=== PATIENT | female | born 1995 | race American Indian/Alaskan Native ===

== ENCOUNTER 2016-07-17 21:46 | Emergency (ER) | payer SELFPAY ==
[2016-07-17] MEDS ORDERED: TYLENOL ONE (22:27)
[2016-07-17 22:30] VITALS: BP 106/70
[2016-07-17] MEDS ORDERED: TYLENOL PO ONE (22:31)
--- NOTE | 2016-07-18 02:27 | Emergency Department Report ---
ED General Adult HPI - General Chief complaint: Fever Stated complaint: CHEST PAIN/SORE THROAT Time Seen by Provider: 07/18/16 02:23 Source: patient Mode of arrival: Ambulatory Limitations: No Limitations - History of Present Illness Initial comments: 20-year-old -[place] female comes in for complaint of fever and generalized body pain sore throat vomiting and cough. Patient reports that this is been going on for the last 2 days. She reports that she has not tried any medication at all. She comes in today with a fever 101.9 she was given Tylenol in triage. She complains of cough vomiting sneezing nausea vomiting. She has no past medical history only surgical history was tonsils removed. -: days(s) (2) Location: head, face Severity scale (0 -10): 7 - Related Data Previous Rx's Medication Instructions Recorded Last Taken Type Cetirizine HCl [ZyrTEC] 10 mg PO QDAY #30 capsule 07/18/16 Unknown Rx Sulfamethoxazole/Trimethoprim 1 each PO BID #20 tablet 07/18/16 Unknown Rx [Bactrim DS TAB] Triamcinolone Acetonide [Nasacort 10.8 ml NS QDAY #1 spray 07/18/16 Unknown Rx SPRAY] Allergies Allergy/AdvReac Type Severity Reaction Status Date / Time No Known Allergies Allergy Verified 07/17/16 22:29 ED Review of Systems ROS: Stated complaint: CHEST PAIN/SORE THROAT Other details as noted in HPI Constitutional: chills, fever Eyes: denies: eye pain, eye discharge, vision change ENT: throat pain, congestion, other Respiratory: cough Cardiovascular: denies: chest pain, palpitations ED Past Medical Hx - Past Medical History Previous Medical History?: No - Surgical History Past Surgical History?: Yes Additional Surgical History: tonsils - Social History Smoking Status: Never Smoker Substance Use Type: Marijuana - Medications Home Medications: Home Medications Medication Instructions Recorded Confirmed Last Taken Type Cetirizine HCl [ZyrTEC] 10 mg PO QDAY #30 capsule 07/18/16 Unknown Rx Sulfamethoxazole/Trimethoprim 1 each PO BID #20 tablet 07/18/16 Unknown Rx [Bactrim DS TAB] Triamcinolone Acetonide [Nasacort 10.8 ml NS QDAY #1 spray 07/18/16 Unknown Rx SPRAY] ED Physical Exam - General Limitations: No Limitations - Head Head exam: Present: atraumatic, normocephalic - Eye Eye exam: Present: normal appearance - ENT ENT exam: Present: mucous membranes moist, TM's normal bilaterally, other ( maxillary tenderness) - Neck Neck exam: Present: normal inspection, full ROM. Absent: tenderness, lymphadenopathy - Respiratory Respiratory exam: Present: normal lung sounds bilaterally. Absent: respiratory distress - Cardiovascular Cardiovascular Exam: Present: regular rate, normal rhythm. Absent: systolic murmur, diastolic murmur, rubs, gallop - GI/Abdominal GI/Abdominal exam: Present: soft, normal bowel sounds - Neurological Exam Neurological exam: Present: alert, oriented X3 - Skin Skin exam: Present: warm, dry, intact, normal color. Absent: rash ED Course Vital Signs 07/17/16 07/18/16 22:25 02:26 Temperature 101.9 F H 98.7 F Pulse Rate 108 H Respiratory 18 Rate Blood Pressure 106/70 O2 Sat by Pulse 100 Oximetry ED Medical Decision Making - Medical Decision Making Patient has been evaluated by this provider in fast track. Patient had a negative rapid strep.. Discussed with patient we'll treat her for sinusitis placed on antibiotic nasal spray and a histamine reena. Patient verbalized understanding Critical care attestation.: If time is entered above; I have spent that time in minutes in the direct care of this critically ill patient, excluding procedure time. ED Disposition Clinical Impression: Sinusitis Qualifiers: Sinusitis location: maxillary Chronicity: acute Recurrence: non-recurrent Qualified Code(s): J01.00 - Acute maxillary sinusitis, unspecified Disposition: DISCHARGED TO HOME OR SELFCARE Is pt being admited?: No Does the pt Need Aspirin: No Condition: Stable Instructions: Sinusitis (ED) Additional Instructions: Take medication as prescribed follow up with the primary care provider if symptoms persist or does not get better. Prescriptions: Cetirizine HCl [ZyrTEC] 10 mg PO QDAY #30 capsule Sulfamethoxazole/Trimethoprim [Bactrim DS TAB] 1 each PO BID #20 tablet Triamcinolone Acetonide [Nasacort SPRAY] 10.8 ml NS QDAY #1 spray Referrals: [facility] [Outside] - 3-5 Days Forms: Work/School Release Form(ED)
== END 2016-07-18 02:30 | disposition home or self-care (01) ==
LOC: ED 21:46
DX: J01.00 Acute maxillary sinusitis, unspecified (principal); F12.10 Cannabis abuse, uncomplicated
CPT/HCPCS: 87116; 87430; 99282

== ENCOUNTER 2018-08-07 11:05 | Emergency (ER) | payer OTHER ==
[2018-08-07 11:16] VITALS: BP 122/74
--- NOTE | 2018-08-07 11:16 | Event Note ---
ED Screening Note ED Screening Note: SEXUALLY ACTIVE WITH BLADDER PAIN vss afebrile IUD ?lmp PMH none rx none psh none This initial assessment/diagnostic orders/clinical plan/treatment(s) is/are subject to change based on patients health status, clinical progression and re- assessment by fellow clinical providers in the ED. Further treatment and workup at subsequent clinical providers discretion. Patient/guardian urged not to elope from the ED as their condition may be serious if not clinically assessed and managed. Initial orders include:
[2018-08-07 11:42] LABS: Bilirubin,Urine NEG (Negative); Blood,Urine NEG (Negative); Color,Urine Yellow (Yellow); Mucus,Urine FEW /HPF; Protein,Urine <15 mg/dL mg/dL (Negative); Urobilinogen,Urine < 2.0 mg/dL (<2.0)
[2018-08-07 11:53] LABS: HCG Qualitative,Urine Negative (Negative)
--- NOTE | 2018-08-07 12:05 | Emergency Department Report ---
ED Female HPI - General Chief complaint: Abdominal Pain Stated complaint: BLADDER PAIN Time Seen by Provider: 08/07/18 11:15 Source: patient Mode of arrival: Ambulatory Limitations: No Limitations - History of Present Illness Initial comments: Pt is a 22 yo female who presents to the ED with c/o suprapubic abdominal pain that began two days ago. She states she feels a pressure when urinating. She has associated frequency. she denies any dysuria, vaginal discharge, vaginal irritation, vaginal itching, vaginal pain, N/V/D, or fever. she states she is sexually active and occasionally uses protection. she states that she last saw her [facility]URSE [facility]Y RO[facility] in april and states she was diagnosed with BV but did not receive treatment at that time. she states she has an IUD as control. - Related Data Previous Rx's Medication Instructions Recorded Last Taken Type Cetirizine HCl [ZyrTEC] 10 mg PO QDAY #30 capsule 07/18/16 Unknown Rx Sulfamethoxazole/Trimethoprim 1 each PO BID #20 tablet 07/18/16 Unknown Rx [Bactrim DS TAB] Triamcinolone Acetonide [Nasacort 10.8 ml NS QDAY #1 spray 07/18/16 Unknown Rx SPRAY] Fluconazole [Diflucan TAB] 150 mg PO ONCE #1 tablet 08/07/18 Unknown Rx metroNIDAZOLE [Flagyl TAB] 500 mg PO BID 7 Days #14 tab 08/07/18 Unknown Rx Allergies Allergy/AdvReac Type Severity Reaction Status Date / Time No Known Allergies Allergy Verified 08/07/18 11:06 ED Review of Systems ROS: Stated complaint: BLADDER PAIN Other details as noted in HPI Comment: All other systems reviewed and negative ED Past Medical Hx - Past Medical History Previous Medical History?: No - Surgical History Past Surgical History?: No Additional Surgical History: tonsils - Social History Smoking Status: Never Smoker Substance Use Type: None - Medications Home Medications: Home Medications Medication Instructions Recorded Confirmed Last Taken Type Cetirizine HCl [ZyrTEC] 10 mg PO QDAY #30 capsule 07/18/16 Unknown Rx Sulfamethoxazole/Trimethoprim 1 each PO BID #20 tablet 07/18/16 Unknown Rx [Bactrim DS TAB] Triamcinolone Acetonide [Nasacort 10.8 ml NS QDAY #1 spray 07/18/16 Unknown Rx SPRAY] Fluconazole [Diflucan TAB] 150 mg PO ONCE #1 tablet 08/07/18 Unknown Rx metroNIDAZOLE [Flagyl TAB] 500 mg PO BID 7 Days #14 tab 08/07/18 Unknown Rx ED Physical Exam - General Limitations: No Limitations General appearance: alert, in no apparent distress - Head Head exam: Present: atraumatic, normocephalic - Eye Eye exam: Present: normal appearance, PERRL - ENT ENT exam: Present: mucous membranes moist - Respiratory Respiratory exam: Present: normal lung sounds bilaterally. Absent: respiratory distress, wheezes, rales, rhonchi, stridor, chest wall tenderness, accessory muscle use, decreased breath sounds, prolonged expiratory - Cardiovascular Cardiovascular Exam: Present: regular rate, normal rhythm, normal heart sounds. Absent: systolic murmur, diastolic murmur, rubs, gallop - GI/Abdominal GI/Abdominal exam: Present: soft, tenderness (mild suprapubic, no tenderness of the RLQ or LLQ ), normal bowel sounds. Absent: distended, guarding, rebound, rigid - External exam: Present: normal external exam. Absent: erythema, swelling, lesions, lacerations, ecchymosis, bleeding Speculum exam: Present: vaginal discharge (moderate amount white discharge ), other (retail support specialist: KERRY Stevens ). Absent: cervical discharge, vaginal bleeding, foreign body, tissue, laceration Bi-manual exam: Present: normal bi-manual exam. Absent: cervical motion tendernes, adnexal tenderness, adnexal mass - Back Exam Back exam: Absent: CVA tenderness (R), CVA tenderness (L) - Neurological Exam Neurological exam: Present: alert, oriented X3 - Psychiatric Psychiatric exam: Present: normal affect, normal mood - Skin Skin exam: Present: warm, dry, intact ED Course Vital Signs 08/07/18 11:15 Temperature 98.1 F Pulse Rate 94 H Respiratory 16 Rate Blood Pressure 122/74 O2 Sat by Pulse 99 Oximetry ED Medical Decision Making - Medical Decision Making Pt is a 22 yo female who presents to the ED with c/o suprapubic abdominal pain that began two days ago. She states she feels a pressure when urinating. She has associated frequency. she denies any dysuria, vaginal discharge, vaginal irritation, vaginal itching, vaginal pain, N/V/D, or fever. she states she is sexually active and occasionally uses protection. she states that she last saw her NURSE EMERGENCY ROOM in april and states she was diagnosed with BV but did not receive treatment at that time. she states she has an IUD as control. UA is normal. Urine is negative. Pelvic examination shows evidence of white vaginal discharge. No CMT no adnexal tenderness Wet prep with clue cells and rare yeast. Gonorrhea and chlamydia swab sent. Patient given prescription for Flagyl and fluconazole. No abdominal tenderness. discussed to please take all medication as prescribed. do NOT drink ETOH while taking medication. follow up with your [facility] in the next 2-3 days. check back with medical records in 1 week for the results of your test and receive treatment if needed. abstain from intercourse for 10 days. have partner tested and treated as well. return to the emergency room for any new or worsening symptoms. if concerned for any other STDs please be seen by primary care, health department or [facility]. - Differential Diagnosis UTI, STD, vaginitis Critical care attestation.: If time is entered above; I have spent that time in minutes in the direct care of this critically ill patient, excluding procedure time. ED Disposition Clinical Impression: Bacterial vaginosis, Vulvovaginal candidiasis Abdominal pain Qualifiers: Abdominal location: lower abdomen, unspecified Qualified Code(s): R10.30 - L ower abdominal pain, unspecified Disposition: TO HOME OR SELFCARE Is pt being admited?: No Does the pt Need Aspirin: No Condition: Stable Instructions: Bacterial Vaginosis (ED), Vulvovaginal Candidiasis (ED) Additional Instructions: please take all medication as prescribed. do NOT drink ETOH while taking medication. follow up with your [employer] in the next 2-3 days. check back with medical records in 1 week for the results of your test and receive treatment if needed. abstain from intercourse for 10 days. have partner tested and treated as well. return to the emergency room for any new or worsening symptoms. if concerned for any other STDs please be seen by primary care, health department or [facility] [facility]. Prescriptions: Fluconazole [Diflucan TAB] 150 mg PO ONCE #1 tablet metroNIDAZOLE [Flagyl TAB] 500 mg PO BID 7 Days #14 tab Referrals: URBANO WASHINGTON MD [Primary Care Provider] - 2-3 Days Forms: STI Treatment and Prevention, Work/School Release Form(ED) Time of Disposition: 13:13 Print Language: ICELANDIC
== END 2018-08-07 13:30 | disposition home or self-care (01) ==
LOC: ED 11:05
DX: N76.0 Acute vaginitis (principal); B37.3 Candidiasis of vulva and vagina; B96.89 Other specified bacterial agents as the cause of diseases classified elsewhere
CPT/HCPCS: 81001; 81025; 87210; 87591